=== PATIENT | female | born 1990 | race Hispanic/Latino ===

== ENCOUNTER 2018-07-05 08:09 | Emergency (ER) | payer MEDICAID ==
[2018-07-05 08:28] LABS: APPEARANCE,URINE Clear (CLEAR); BILIRUBIN,URINE Negative (NEGATIVE); COLOR,URINE Yellow (YELLOW); GLUCOSE, URINE (UA) Negative (NEGATIVE); KETONES,URINE Negative (NEGATIVE); LEUKOCYTE ESTERASE ,URINE Moderate (NEGATIVE); NITRATE,URINE Negative (NEGATIVE); OCCULT BLOOD,URINE Negative (NEGATIVE); PH,URINE 8.5 (5.0-8.0); PROTEIN,URINE Negative (NEGATIVE)
[2018-07-05 09:04] LABS: BACTERIA,URINE Few /HPF (None Seen); RBC,URINE None Seen /HPF (0-1); SQUAMOUS EPITHELIAL CELL,UR Few /HPF (0-2)
== END 2018-07-05 09:46 | disposition home or self-care (01) ==
LOC: EDH 08:09
DX: O23.41 Unspecified infection of urinary tract in pregnancy, first trimester (principal); Z3A.01 Less than 8 weeks gestation of pregnancy
CPT/HCPCS: 81001; 87077; 87088; 87186

== ENCOUNTER 2018-07-30 15:23 | Emergency (ER) | payer MEDICAID ==
[2018-07-30 15:47] LABS: APPEARANCE,URINE Clear (CLEAR); BILIRUBIN,URINE Negative (NEGATIVE); COLOR,URINE Yellow (YELLOW); GLUCOSE, URINE (UA) Negative (NEGATIVE); KETONES,URINE Negative (NEGATIVE); LEUKOCYTE ESTERASE ,URINE Negative (NEGATIVE); NITRATE,URINE Negative (NEGATIVE); OCCULT BLOOD,URINE Negative (NEGATIVE); PH,URINE 5.5 (5.0-8.0); PROTEIN,URINE Negative (NEGATIVE)
== END 2018-07-30 18:27 | disposition home or self-care (01) ==
LOC: EDH 15:23
DX: O20.0 Threatened abortion (principal); M54.5 Low back pain; R30.0 Dysuria; Z3A.10 10 weeks gestation of pregnancy
CPT/HCPCS: 36415; 76801; 81003; 84702

== ENCOUNTER 2018-08-23 22:13 | Emergency (ER) | payer MEDICAID ==
[2018-08-23 23:06] LABS: BASOPHILS % (AUTO) 0.5 % (0.0-5.0); LYMPHOCYTES % (AUTO) 25.2 % (21.0-51.0); MEAN CORPUSCULAR HEMOGLOBIN 32.1 pg (27.0-33.0); MEAN CORPUSCULAR HGB CONC 34.8 g/dL (32.0-36.0); MEAN CORPUSCULAR VOLUME 92.4 fL (79-99); MONOCYTES % (AUTO) 7.1 % (3.0-13.0); NEUTROPHILS % (AUTO) 66.2 % (40.0-77.0); NUCLEATED RED BLOOD CELLS 0.1 % (0.0-0.19); PLATELET COUNT (AUTO) 197 K/uL (130-400); RED BLOOD CELL COUNT(AUTO) 4.44 MIL/uL (4.00-5.50); RED CELL DISTRIBUTION WIDTH 13.1 % (11.0-15.5); WHITE BLOOD COUNT (AUTO) 9.3 K/uL (4.8-10.8)
[2018-08-23 23:09] LABS: APPEARANCE,URINE Clear (CLEAR); BILIRUBIN,URINE Negative (NEGATIVE); COLOR,URINE Yellow (YELLOW); GLUCOSE, URINE (UA) Negative (NEGATIVE); KETONES,URINE Negative (NEGATIVE); LEUKOCYTE ESTERASE ,URINE Trace (NEGATIVE); NITRATE,URINE Negative (NEGATIVE); OCCULT BLOOD,URINE Negative (NEGATIVE); PH,URINE 6.5 (5.0-8.0); PROTEIN,URINE Negative (NEGATIVE)
[2018-08-23] MEDS ORDERED: LACTATED RINGERS 1000ML 2,000 ML IV ONE (23:09)
[2018-08-23 23:18] LABS: BACTERIA,URINE Rare /HPF (None Seen); CREATININE 0.5 mg/dL (0.5-1.5); MUCUS,URINE Few LPF (None Seen); POTASSIUM 3.4 mmol/L (3.5-5.1); RBC,URINE None Seen /HPF (0-1); SQUAMOUS EPITHELIAL CELL,UR Rare /HPF (0-2); WBC,URINE 0-1 /HPF (0-1)
[2018-08-23 23:22] LABS: ALBUMIN 3.3 g/dL (3.5-5.0); BILIRUBIN,TOTAL 0.2 mg/dL (0.2-1.0); TOTAL PROTEIN, SERUM 7.2 g/dL (6.0-8.3)
[2018-08-23] MEDS ORDERED: POTASSIUM CHLORIDE 20 MEQ ERTAB PO ONE (23:45)
== END 2018-08-24 01:22 | disposition home or self-care (01) ==
LOC: EDH 22:13
DX: O26.891 Other specified pregnancy related conditions, first trimester (principal); H92.02 Otalgia, left ear; R42 Dizziness and giddiness; Z3A.13 13 weeks gestation of pregnancy
CPT/HCPCS: 36415; 80053; 81001; 85025; 96361; 96374; 99285; J7120

== ENCOUNTER 2019-03-31 17:51 | Emergency (ER) | payer MEDICAID ==
[~2019-03-31 17:51] MED LIST: PREN-202 PO
[2019-03-31] MEDS ORDERED: ACETAMINOPHEN 325 MG TAB ONE (18:09)
[2019-03-31] MEDS ORDERED: CEFTRIAXONE SODIUM 1 GM ONE (18:09)
[2019-03-31] MEDS ORDERED: LIDOCAINE HCL-MPF 1% 2ML VIAL ONE (18:11)
== END 2019-03-31 18:36 | disposition home or self-care (01) ==
LOC: EDH 17:51
DX: N61.0 Mastitis without abscess (principal); Z79.899 Other long term (current) drug therapy
CPT/HCPCS: 96372; 99283; J0696; J3490